=== PATIENT | female | born 2000 | race Caucasian/White ===

== ENCOUNTER 2021-12-15 16:10 | Emergency (ER) | payer OTHER, SELFPAY ==
[2021-12-15 17:09] VITALS: BP 108/72; PULSE 70; RESP 19; TEMP 36.9; O2SAT 100; BMI 26.5
[2021-12-15] MEDS: TET,DIPH,PERTUSS(ACELL),VAC/PF 0.5 ML SYRINGE IM (17:27)
[2021-12-15] MEDS: LIDOCAINE 2% W/EPI INJ 1 ML INJ (19:08)
--- NOTE | 2021-12-15 19:25 | ED_ITS ---
HPI - Wound/Laceration <Nelson Arteaga PA-C - Last Filed: 12/15/21 19:51> General Chief Complaint: Wound/Laceration Stated Complaint: Puncture above rt knee Time Seen by Provider: 12/15/21 18:05 Source: patient Mode of arrival: Family Vehicle History of Present Illness HPI narrative: Patient emergency room today with complaint of laceration to the right knee. Injured right knee today on a trailer hitch when she was working. The hitch was was moving clean and had no floating debris a possibly be fine body. Than the I she had her last tetanus shot. Lower extremity is mildly painful at the area of the laceration and patient has no other concerns at this time. Related Data Home Medications Medication Instructions Recorded Confirmed No Known Home Medications 12/15/21 12/15/21 Allergies Allergy/AdvReac Type Severity Reaction Status Date / Time No Known Drug Allergies Allergy Verified 12/15/21 17:09 Review of Systems <Nelson Arteaga PA-C - Last Filed: 12/15/21 19:51> Review of Systems Narrative: R.O.S.: General: No fever, chills, fatigue or other concerns. Cardiovascular: No chest pain, palpitations or other Cardiovascular related concerns. Respiratory: No S.O.B. or other Respiratory related concerns. HEENT: No congestion, ear pain, rhinorrhea, sore throat or tinnitus Gastrointestinal: No nausea, vomiting or other Gastrointestinal related concerns. Skin: Has a laceration to the right knee. Neurological: Awake, alert and in not apparent distress. No Headaches, changes in vision or other related neurological concerns. Patient History <Nelson Arteaga PA-C - Last Filed: 12/15/21 19:51> Social History Smoking Status: Never smoker Smoking Status: Never smoker alcohol intake frequency: 0-2 drinks per day Substance Use Type: marijuana Exam <Nelson Arteaga PA-C - Last Filed: 12/15/21 19:51> Narrative Exam Narrative: Patient has a 3 cm laceration to the medial left knee area. The laceration is through the entire dermis and does not involve tendon or muscle. The area has mild drainage with very minimal swelling. Initial Vital Signs Initial Vital Signs: Vital Signs Temperature 98.5 F 12/15/21 17:09 Pulse Rate 70 12/15/21 17:09 Respiratory Rate 19 12/15/21 17:09 Blood Pressure 108/72 12/15/21 17:09 Pulse Oximetry 100 12/15/21 17:09 Oxygen Delivery Method 12/15/21 17:09 Chest Chest: normal inspection of the chest Resp Effort & Inspection: normal respiratory effort Auscultation: clear to auscultation bilaterally Percussion: percussion normal Cardio Rate: regular rate Rhythm: regular rhythm GI Inspection: normal to inspection Palpation: soft and No tender Percussion: normal to percussion Auscultation: normal bowel sounds <Leila Burgos MD - Last Filed: 12/16/21 05:18> Initial Vital Signs Initial Vital Signs: Vital Signs Temperature 98.5 F 12/15/21 17:09 Pulse Rate 70 12/15/21 17:09 Respiratory Rate 19 12/15/21 17:09 Blood Pressure 108/72 12/15/21 17:09 Pulse Oximetry 100 12/15/21 17:09 Oxygen Delivery Method 12/15/21 17:09 Procedures <Nelson Arteaga PA-C - Last Filed: 12/15/21 19:51> Laceration Repair Laceration 1: Site: lower extremity Side (If applicable): right (Knee) Description: irregular Depth: simple, single layer Local Anesthetic: lidocaine 2% Amount of anesthesia used (mL): 10 Skin layer closed with: nylon Number of sutures: 7 Technique: simple, interrupted Course <Nelson Arteaga PA-C - Last Filed: 12/15/21 19:51> Orders Ordered: Discontinued Medications Bacitracin (Bacitracin Oint 0.9 Gm Pckt) 1 applic TOP NOW ONE Stop: 12/15/21 19:29 Last Admin: 12/15/21 19:38 Dose: 1 applic Documented By: KAROLINA Diphtheria/Tetanus/Acell Pertussis (Tet,Diph,Pertuss(Acell),Vac/Pf 0.5 Ml Syringe) 0.5 ml IM .ONCE ONE Stop: 12/15/21 17:15 Last Admin: 12/15/21 17:27 Dose: 0.5 ml Documented By: JUAN C Lidocaine/Epinephrine (Lidocaine 2% W/Epi Inj) 1 ml INJ INTRA-OP ONE Stop: 12/15/21 19:08 Last Admin: 12/15/21 19:08 Dose: 1 ml Documented By: AT Vital Signs Vital signs: Vital Signs - 8 hr 12/15/21 17:09 12/15/21 19:32 12/15/21 19:32 Temperature 98.5 F Pulse Rate 70 65 Respiratory Rate 19 Blood Pressure 108/72 111/72 Pulse Oximetry 100 100 Oxygen Delivery Method Room Air Room Air <Leila Burgos MD - Last Filed: 12/16/21 05:18> Orders Ordered: Discontinued Medications Bacitracin (Bacitracin Oint 0.9 Gm Pckt) 1 applic TOP NOW ONE Stop: 12/15/21 19:29 Last Admin: 12/15/21 19:38 Dose: 1 applic Documented By: KP Diphtheria/Tetanus/Acell Pertussis (Tet,Diph,Pertuss(Acell),Vac/Pf 0.5 Ml Syringe) 0.5 ml IM .ONCE ONE Stop: 12/15/21 17:15 Last Admin: 12/15/21 17:27 Dose: 0.5 ml Documented By: JUAN C Lidocaine/Epinephrine (Lidocaine 2% W/Epi Inj) 1 ml INJ INTRA-OP ONE Stop: 12/15/21 19:08 Last Admin: 12/15/21 19:08 Dose: 1 ml Documented By: AT Vital Signs Vital signs: Vital Signs - 8 hr 12/15/21 17:09 12/15/21 19:32 12/15/21 19:32 Temperature 98.5 F Pulse Rate 70 65 Respiratory Rate 19 Blood Pressure 108/72 111/72 Pulse Oximetry 100 100 Oxygen Delivery Method Room Air Room Air MDM - Wound/Laceration <Nelson Arteaga PA-C - Last Filed: 12/15/21 19:51> MDM Narrative Medical decision making narrative: Patient is a 20-year-old female who presents to the emergency room today with a laceration of her right knee. Physical exam revealed a 3 cm laceration to the right medial knee area. Patient denies current Tdap vaccination and that was administered today. This provider used 4. Ethilon suture to insert 7 interrupted sutures to close without complications. Dressing applied by nurse and patient instructed on care. Patient also advised to return to the emergency room if any emergent concerns arise. Note L and I paperwork also completed at this visit. Discharge Plan Departure Patient Disposition: Home Clinical Impression: Laceration Instructions: DI for Laceration Repair Activity Restrictions/Additional Instructions: *You have been diagnosed with [laceration to right knee area. Your laceration was repaired today in the ER and you were given instructions on how to care for it. You are advised to return to the emergency room or urgent care for suture removal in 7 days. Also please refrain from strenuous activity using the right knee. Also please refrain from applying any pressure or foreign body to the sutured area. Please return to the emergency room if any emergent concerns arise. *What to do: *Please continue to take your regular medications as directed. [ ] New medication prescriptions sent to your pharmacy: [ ] [ ] New medication written as a paper prescription [ x] No new medications given *Please follow up with your primary care provider in 2-3 days, call for an appointment. Let them know you were seen in the Emergency Department and that we ask that you be seen in follow up. We will electronically transmit a record of today's note if your PCP is in our system *If you do not have a primary care provider please contact the [facility] Resource line at [phone]. They will ask some questions about your medical history and help get you set up with a doctor in the community. *Return to Emergency Department if you should have any new, worsening or concerning symptoms, such as [fever greater than 101 F, shaking chills, worsening pain, persistent vomiting or other bothersome symptoms] Prescriptions: No Action No Known Home Medications Visit Report Forms: Patient Portal/API <Leila Burgos MD - Last Filed: 12/16/21 05:18> [facility] Attestation: I was immediately available in the department for consultation throughout this patient's visit. I agree with documentation as above. Leila Burgos MD
[2021-12-15 19:32] VITALS: BP 111/72; PULSE 65; O2SAT 100
[2021-12-15] MEDS: BACITRACIN OINT 0.9 GM PCKT 1 APPLIC TOP (19:38)
[2021-12-15 19:55] VITALS: BP 111/65; PULSE 60; O2SAT 99
== END 2021-12-15 19:55 | disposition home or self-care (01) ==
PROVIDERS: Emergency Provider Physician Assistant
DX: S81.011A Laceration without foreign body, right knee, initial encounter (principal); W45.8XXA Other foreign body or object entering through skin, initial encounter; Z23 Encounter for immunization
CPT/HCPCS: 12002; 90471; 99283; 90715